=== PATIENT | male | born 1990 | race Caucasian/White ===

== ENCOUNTER 2018-12-31 10:50 | Emergency (ER) | payer BC ==
--- NOTE | 2018-12-31 11:12 | EDM.PDOC ---
ED HPI GENERAL MEDICAL PROBLEM - General Chief Complaint: Upper Extremity Injury/Pain Stated Complaint: right hand middle finger injury Time Seen by Provider: 12/31/18 11:00 - Related Data Allergies Allergy/AdvReac Type Severity Reaction Status Date / Time No Known Allergies Allergy Verified 12/31/18 10:51 Home Meds: Home Meds Amoxicillin/Potassium Clav [Augmentin 875-125 Tablet] 1 each PO BID 10 Days #20 tablet 12/31/18 [Rx] Ibuprofen 3 tab PO ONETIME 12/31/18 [History] Povidone-Iodine [Betadine] 473 ml TP BID #1 solution 12/31/18 [Rx] Past Medical History - Past Surgical History HEENT Surgical History: Reports: Oral Surgery Social & Family History - Caffeine Use Caffeine Use: Reports: Soda - Recreational Drug Use Recreational Drug Use: No Review of Systems - Review of Systems Review Of Systems: ROS reveals no pertinent complaints other than HPI. ED EXAM, GENERAL - Physical Exam Exam: See Below Exam Limited By: No Limitations General Appearance: Alert, WD/WN, No Apparent Distress Ears: Normal External Exam, Normal Canal, Hearing Grossly Normal, Normal TMs Ear Exam: Bilateral Ear: Auricle Normal, Canal Normal, TM normal Nose: Normal Inspection, Normal Mucosa, No Blood Throat/Mouth: Normal Inspection, Normal Lips, Normal Teeth, Normal Gums, Normal Oropharynx, Normal Voice, No Airway Compromise Head: Atraumatic, Normocephalic Neck: Normal Inspection, Supple, Non-Tender, Full Range of Motion Respiratory/Chest: No Respiratory Distress, Lungs Clear, Normal Breath Sounds, No Accessory Muscle Use, Chest Non-Tender Cardiovascular: Normal Peripheral Pulses, Regular Rate, Rhythm, No Edema, No Gallop, No JVD, No Murmur, No Rub GI/Abdominal: Normal Bowel Sounds, Soft, Non-Tender, No Organomegaly, No Distention, No Abnormal Bruit, No Mass (Male) Exam: Deferred Rectal (Males) Exam: Deferred Back Exam: Normal Inspection, Full Range of Motion, NT Extremities: Normal Range of Motion, Joint Swelling (Right middle finger PIP joint swelling with open laceration) Psychiatric: Normal Affect, Normal Mood Skin Exam: Wound/Incision (Right middle finger infection) Course - Vital Signs Last Recorded V/S: Last Vital Signs Temp 97.4 F 12/31/18 10:56 Pulse 70 12/31/18 10:56 Resp 18 12/31/18 10:56 BP 126/76 12/31/18 10:56 Pulse Ox 100 12/31/18 10:56 - Orders/Labs/Meds Orders: Active Orders 24 hr Category Date Time Status CULTURE WOUND [RM] Stat Lab 12/31/18 11:09 Ordered Departure - Departure Time of Disposition: 11:07 Disposition: Home, Self-Care 01 Condition: Fair Clinical Impression: Superficial injury of right middle finger with infection - Discharge Information *PRESCRIPTION DRUG MONITORING PROGRAM REVIEWED*: No *COPY OF PRESCRIPTION DRUG MONITORING REPORT IN PATIENT DAI: No Prescriptions: Amoxicillin/Potassium Clav [Augmentin 875-125 Tablet] 1 each PO BID 10 Days #20 tablet Povidone-Iodine [Betadine] 473 ml TP BID #1 solution Instructions: Cellulitis, Adult, Cellulitis, Adult, [id number] Referrals: PCP,None [Primary Care Provider] - Forms: ED Department Discharge - My Orders Last 24 Hours: My Active Orders 12/31/18 11:09 CULTURE WOUND [RM] Stat - Assessment/Plan Last 24 Hours: My Active Orders 12/31/18 11:09 CULTURE WOUND [RM] Stat
== END 2018-12-31 11:17 | disposition home or self-care (01) ==
LOC: LL.ED 10:50
DX: S61.212A Laceration without foreign body of right middle finger without damage to nail, initial encounter (principal); L08.9 Local infection of the skin and subcutaneous tissue, unspecified; X58.XXXA Exposure to other specified factors, initial encounter
CPT/HCPCS: 87070; 87106; 87205; 99283